=== PATIENT | female | born 1970 | race Caucasian/White ===

== ENCOUNTER 2017-06-24 08:28 | Emergency (ER) | payer SELFPAY ==
[~2017-06-24] VITALS: Ht 154.9 cm; Wt 67.1 kg
[2017-06-24 08:40] VITALS: BP 110/59
--- NOTE | 2017-06-24 08:50 | NUR ---
PT AMBULATED TO BED 11. Addendum: 06/24/17 at 0852 by [facility] PT AMBULATED TO BED 12.
--- NOTE | 2017-06-24 08:52 | NUR ---
47F BIB SELF C/O BODY ACHES, PRESSURE, NON-RADIATING, 8/10 X YESTERDAY; PT C/O HEADACHE AND PRODUCTIVE COUGH WITH WHITE PHLEGM X YESTERDAY; BL LUNG SOUNDS CLEAR, RR EVEN/UNLABORED, EQUAL RISE/FALL OF CHEST NOTED AT THIS TIME; PT STATES NO TRAUMA OR INJURY TO HEAD AT THIS TIME; PT AA&OX4, PERRLA, STATES NO BLURRY VISION OR VISION CHANGES AT THIS TIME; PT C/O NAUSEA, BUT STATES NO VOMITING OR DIARRHEA AT THIS TIME; ABDOMEN SOFT, NON-TENDER, ACTIVE BOWEL SOUNDS X 4 QUADRANTS; STEADY GAIT; PT RESTING IN BED WITH HOB ELEVATED AND IN LOWEST POSITION; POSITIONED FOR COMFORT; ER MD MADE AWARE OF STATUS. WILL CONTINUE TO MONITOR.
[2017-06-24] MEDS ORDERED: NACL 0.9% 1,000 ML IV ONE (10:10)
[2017-06-24] MEDS ORDERED: KETOROLAC 30 MG/ML VIAL IVP ONE (10:10)
[2017-06-24] MEDS ORDERED: ONDANSETRON 4 MG/2 ML VIAL IVP ONE (10:30)
--- NOTE | 2017-06-24 10:30 | NUR ---
PT APPEARS TO RESTING COMFORTABLY IN BED; RR EVEN/UNLABORED; POSITIONED FOR COMFORT; WILL CONTINUE TO MONITOR.
[2017-06-24 10:41] LABS: ANION GAP 15.9 (8-16); CARBON DIOXIDE 26.6 mmol/L (21-32); CREATININE 0.9 mg/dL (0.6-1.3); POTASSIUM 3.5 mmol/L (3.5-5.1)
[2017-06-24 10:46] LABS: ALBUMIN 4.5 g/dL (3.4-5.0); TOTAL BILIRUBIN 0.5 mg/dL (0.0-1.0)
[2017-06-24 10:48] LABS: BASOPHILS # (AUTO) 0.1 K/uL (0.00-0.22); BASOPHILS % (AUTO) 0.8 % (0.0-2.0); EOSINOPHILS % (AUTO) 0.6 % (0.0-4.0); HEMATOCRIT 41.2 % (36-48); HEMOGLOBIN 13.6 g/dL (12.0-16.0); LYMPHOCYTES # (AUTO) 0.6 K/uL (2.5-16.5); LYMPHOCYTES % (AUTO) 7.9 % (20.5-51.1); MEAN CORPUSCULAR HEMOGLOBIN 28 pg (27-31); MEAN CORPUSCULAR HGB CONC 33 g/dL (33-37); MEAN CORPUSCULAR VOLUME 85 fL (80-94); MONOCYTES # (AUTO) 0.9 K/uL (0.8-1.0); MONOCYTES % (AUTO) 12.8 % (1.7-9.3); NEUTROPHILS # (AUTO) 5.4 K/uL (1.8-7.7); NEUTROPHILS % (AUTO) 77.9 % (42.2-75.2); PLATELET COUNT (AUTO) 293 K/uL (140-450); RED BLOOD CELL COUNT(AUTO) 4.86 MIL/uL (4.20-5.40); RED CELL DISTRIBUTION WIDTH 12.5 % (11.6-13.7)
--- NOTE | 2017-06-24 11:08 | NUR ---
PT STATES NOT READY TO GIVE URINE AT THIS TIME; URINE CUP PROVIDED; WILL CONTINUE TO MONITOR.
--- NOTE | 2017-06-24 12:44 | NUR ---
PT APPEARS TO BE RESTING COMFORTABLY IN BED; RR EVEN/UNLABORED; POSITIONED FOR COMFORT; WILL CONTINUE TO MONITOR.
--- NOTE | 2017-06-24 13:00 | NUR ---
PATIENT RESTING COMFORTABLY. STATES ONLY HAS HEAD ACHE AND FEELING MUCH BETTER. CONINTUE TO MONITOR.
[2017-06-24 13:11] LABS: APPEARANCE,URINE HAZY (CLEAR); BILIRUBIN,URINE NEGATIVE (NEGATIVE); BLOOD, URINE NEGATIVE (NEGATIVE); LEUKOCYTE ESTERASE ,URINE NEGATIVE (NEGATIVE); NITRITE, URINE NEGATIVE (NEGATIVE); PH,URINE 7.5 (5.0-9.0); UGLUCOSE NEGATIVE (NEGATIVE)
[2017-06-24 13:13] LABS: COLOR,URINE YELLOW (YELLOW)
[2017-06-24] MEDS ORDERED: ACETAMINOPHEN EXTRA STRENGTH 500 MG TAB PO ONE (14:10)
[2017-06-24 14:46] VITALS: BP 105/58
== END 2017-06-24 14:47 | disposition home or self-care (01) ==
LOC: MED 08:28
DX: B34.9 Viral infection, unspecified (principal)
CPT/HCPCS: 36415; 80053; 81003; 81025; 84702; 85025; 87804; 96361; 96374; 96375; 99284; J1885; J2405; J7030

== ENCOUNTER 2018-10-17 11:09 | Emergency (ER) | payer SELFPAY ==
[~2018-10-17] VITALS: Ht 154.9 cm; Wt 64.4 kg
[2018-10-17 11:25] VITALS: BP 105/64
--- NOTE | 2018-10-17 12:15 | NUR ---
PT TO ER BED 7
--- NOTE | 2018-10-17 12:37 | NUR ---
Dr. Garcia evaluating patient at bedside.
[2018-10-17] MEDS ORDERED: KETOROLAC 60 MG/2 ML VIAL IM ONE (12:50)
[2018-10-17] MEDS ORDERED: DEXAMETHASONE 10 MG/ML VIAL IM ONE (12:50)
--- NOTE | 2018-10-17 13:00 | NUR ---
48 Y FEMALE BIB SELF C/O RIGHT ARM PAIN X 1 MONTH. PT STATES SHE WAS LIFTING BOXES AND HURT HER ARM. RECENTLY THE PAIN HAS WORSENED. PAIN 10/10 SEVERE. -ROM, NO TRUAMA, -DEFORMITY. +CAP REFILL <3 SECONDS, PALPABLE RADIAL PULSE. VSS AT THIS TIME. AA0X4. BED IS DOWN, LOCKED, BED RAILX 1, ERMD NOTIFIED. PMH: TENDINITIS
--- NOTE | 2018-10-17 13:02 | NUR ---
XRAY AT BEDSIDE
[2018-10-17 13:36] VITALS: BP 110/67
== END 2018-10-17 13:36 | disposition home or self-care (01) ==
LOC: MED 11:09
DX: M75.01 Adhesive capsulitis of right shoulder (principal)
CPT/HCPCS: 73030; 96372; 99283; J1100; J1885; Q0092

== ENCOUNTER 2018-11-23 08:59 | Emergency (ER) | payer SELFPAY ==
[~2018-11-23] VITALS: Ht 154.9 cm; Wt 63.5 kg
[2018-11-23 09:10] VITALS: BP 134/86
--- NOTE | 2018-11-23 10:00 | NUR ---
Pt presents to ER with c/o N/V/D x 1 day and right arm pain from injury 4 years ago. pt last ate last night and vomited. vomiting started yesterday morning. stools are loose. abdominal pain 02/02 hx: vertigo
[2018-11-23] MEDS ORDERED: NACL 0.9% 1,000 ML IV ONE (10:25)
[2018-11-23] MEDS ORDERED: MORPHINE SULFATE 2 MG/ML SYR IVP ONE (10:25)
[2018-11-23] MEDS ORDERED: DIPHENOXYLATE /ATROPINE 2.5 MG TAB PO ONE (10:25)
[2018-11-23] MEDS ORDERED: KETOROLAC 30 MG/ML VIAL IVP ONE (10:25)
[2018-11-23] MEDS ORDERED: ONDANSETRON 4 MG/2 ML VIAL IVP ONE (10:25)
[2018-11-23] MEDS ORDERED: NACL 0.9% 1,000 ML IV SCH (10:25)
[2018-11-23] MEDS ORDERED: PROMETHAZINE 25 MG/ML VIAL IM ONE (10:25)
[2018-11-23 11:21] LABS: BASOPHILS % (AUTO) 0.3 % (0.0-2.0); EOSINOPHILS # (AUTO) 0.2 K/uL (0-0.4); EOSINOPHILS % (AUTO) 1.9 % (0.0-4.0); HEMATOCRIT 39.6 % (36-48); LYMPHOCYTES % (AUTO) 21.2 % (20.5-51.1); MEAN CORPUSCULAR HEMOGLOBIN 27 pg (27-31); MEAN CORPUSCULAR HGB CONC 33 g/dL (33-37); MEAN CORPUSCULAR VOLUME 81.5 fL (80-94); MONOCYTES # (AUTO) 0.8 K/uL (0.8-1.0); MONOCYTES % (AUTO) 8.5 % (1.7-9.3); NEUTROPHILS # (AUTO) 6.4 K/uL (1.8-7.7); NEUTROPHILS % (AUTO) 68.1 % (42.2-75.2); PLATELET COUNT (AUTO) 326 K/uL (140-450); RED BLOOD CELL COUNT(AUTO) 4.85 MIL/uL (4.20-5.40); RED CELL DISTRIBUTION WIDTH 13.7 % (11.6-13.7); WHITE BLOOD COUNT (AUTO) 9.5 K/uL (4.8-10.8)
[2018-11-23 11:30] LABS: ANION GAP 12.6 (8-16); CARBON DIOXIDE 27.4 mmol/L (21-32); CHLORIDE 104 mmol/L (98-107); CREATININE 0.6 mg/dL (0.6-1.3); GFR ARICAN-AMERICAN 137 mL/min (>90); GLUCOSE 97 mg/dL (74-106); SODIUM SERUM 140 mmol/L (136-145); UREA NITROGEN, BLOOD 13 mg/dL (7-18)
[2018-11-23 11:35] LABS: ACETONE, SERUM NEGATIVE (NEGATIVE)
[2018-11-23 11:36] LABS: ALBUMIN 3.9 g/dL (3.4-5.0); AMYLASE 86 U/L (25-115); ASPARTATE AMINOTRANSFERASE 28 U/L (15-37); LIPASE 166 U/L (73-393); TOTAL BILIRUBIN 0.7 mg/dL (0.0-1.0)
--- NOTE | 2018-11-23 11:40 | NUR ---
PT TO CT VIA [facility]
--- NOTE | 2018-11-23 11:40 | NUR ---
Patient taken to CT scan via gurney by [employer]
[2018-11-23 11:42] LABS: BARBITURATE, URINE NEG. ng/ml (NEG <=200); BENZODIAZEPINE, URINE NEG. ng/mL (NEG <=200); CANNABINOID, URINE NEG. ng/mL (NEG <=50); COCAINE, URINE NEG. ng/mL (NEG <=300); OPIATE, URINE NEG. ng/mL (NEG <=2000); PHENCYCLIDINE SCREEN,URINE NEG. ng/mL (NEG <=25)
--- NOTE | 2018-11-23 11:51 | NUR ---
Patient returned from CT scan. RN re-evaluating patient at bedside.
[2018-11-23 11:53] LABS: APPEARANCE,URINE CLEAR (CLEAR); BILIRUBIN,URINE NEGATIVE (NEGATIVE); BLOOD, URINE NEGATIVE (NEGATIVE); COLOR,URINE YELLOW (YELLOW); LEUKOCYTE ESTERASE ,URINE NEGATIVE (NEGATIVE); NITRITE, URINE NEGATIVE (NEGATIVE); UGLUCOSE NEGATIVE (NEGATIVE)
--- NOTE | 2018-11-23 15:01 | NUR ---
Patient appears to be resting comfortably in bed. Vital Signs within normal limits. Respirations even and unlabored.
--- NOTE | 2018-11-23 15:12 | NUR ---
Patient discharged with v/s stable. Written and verbal after care instructions given and explained. Patient alert, oriented and verbalized understanding of instructions. Ambulatory with steady gait. All questions addressed prior to discharge. ID band removed. Patient advised to follow up with PMD. Rx of IMMODIUM, COMPAZINE given. Patient educated on indication of medication including possible reaction and side effects. Opportunity to ask questions provided and answered.
[2018-11-23 15:13] VITALS: BP 112/65
== END 2018-11-23 15:12 | disposition home or self-care (01) ==
LOC: MED 08:59
DX: A08.4 Viral intestinal infection, unspecified (principal)
CPT/HCPCS: 36415; 74176; 80053; 80305; 81003; 81025; 82009; 82150; 83605; 83690; 85025; 96361; 96374; 96375; 99284; G0482; J1885; J2270; J2405; J2550; J7030

== ENCOUNTER 2018-11-30 19:34 | Emergency (ER) | payer SELFPAY ==
[~2018-11-30] VITALS: Ht 154.9 cm; Wt 67.6 kg
[2018-11-30 19:35] VITALS: BP 137/82
--- NOTE | 2018-11-30 19:35 | NUR ---
TO BED # 12 AMBULATORY
--- NOTE | 2018-11-30 19:50 | NUR ---
PT BIB SELF C/O ABD PAIN. PT STATES SUDDEN RIGHT FLANK PAIN, LLQ ABD PAIN RADIATES TO LEFT SIDE OF BACK, +TENDERNESS; +NAUSEA; DENIES TRAUMA OR INJURY. PT STATES 7/10 CONSTANT CRAMPING ABD PAIN. BOWEL SOUNDS ACTIVE THROUGH OUT. PT ACTING APPROPRIATLY, SPEAKING IN CLEAR AND COMPLETE SENTENCES. PT IN GOWN, IN BED; BED IN LOWER LOCKED POSITION, BEDRAIL UP X1. PENDING ERMD EVAL.
[2018-11-30] MEDS ORDERED: NACL 0.9% 1,000 ML IV SCH (20:20)
[2018-11-30] MEDS ORDERED: MORPHINE SULFATE 4 MG/ML SYR IVP ONE (20:20)
[2018-11-30] MEDS ORDERED: ONDANSETRON 4 MG/2 ML VIAL IVP ONE (20:20)
--- NOTE | 2018-11-30 20:40 | NUR ---
LAB AT BEDSIDE.
[2018-11-30 20:50] LABS: BASOPHILS # (AUTO) 0.1 K/uL (0.00-0.22); EOSINOPHILS # (AUTO) 0.3 K/uL (0-0.4); EOSINOPHILS % (AUTO) 2.9 % (0.0-4.0); HEMATOCRIT 36.8 % (36-48); LYMPHOCYTES # (AUTO) 3.8 K/uL (2.5-16.5); LYMPHOCYTES % (AUTO) 42.8 % (20.5-51.1); MEAN CORPUSCULAR HEMOGLOBIN 27 pg (27-31); MEAN CORPUSCULAR HGB CONC 33 g/dL (33-37); MEAN CORPUSCULAR VOLUME 80.8 fL (80-94); MONOCYTES % (AUTO) 11.7 % (1.7-9.3); NEUTROPHILS # (AUTO) 3.6 K/uL (1.8-7.7); NEUTROPHILS % (AUTO) 41.6 % (42.2-75.2); PLATELET COUNT (AUTO) 348 K/uL (140-450); RED BLOOD CELL COUNT(AUTO) 4.55 MIL/uL (4.20-5.40); RED CELL DISTRIBUTION WIDTH 13.3 % (11.6-13.7); WHITE BLOOD COUNT (AUTO) 8.8 K/uL (4.8-10.8)
--- NOTE | 2018-11-30 20:56 | NUR ---
PT GONE TO CT
[2018-11-30 20:58] LABS: APPEARANCE,URINE CLEAR (CLEAR); BILIRUBIN,URINE NEGATIVE (NEGATIVE); BLOOD, URINE NEGATIVE (NEGATIVE); COLOR,URINE YELLOW (YELLOW); LEUKOCYTE ESTERASE ,URINE TRACE (NEGATIVE); NITRITE, URINE NEGATIVE (NEGATIVE); UGLUCOSE NEGATIVE (NEGATIVE)
--- NOTE | 2018-11-30 20:58 | NUR ---
PT TO CT VIA [facility] BY [employer].
[2018-11-30 21:10] LABS: ALBUMIN 3.8 g/dL (3.4-5.0); ANION GAP 13.6 (8-16); CREATININE 0.6 mg/dL (0.6-1.3); POTASSIUM 3.6 mmol/L (3.5-5.1); TOTAL BILIRUBIN 0.3 mg/dL (0.0-1.0)
[2018-11-30 21:22] LABS: RBC,URINE 0-5 /HPF (0-5); WBC,URINE 0-5 /HPF (0-5)
--- NOTE | 2018-11-30 21:30 | NUR ---
PATIENT STATES NO NEEDS. SITTING UP IN BED.
[2018-11-30 23:03] VITALS: BP 115/77
--- NOTE | 2018-11-30 23:04 | NUR ---
Patient discharged with v/s stable. Written and verbal after care instructions given and explained. Patient alert, oriented and verbalized understanding of instructions. Ambulatory with steady gait. All questions addressed prior to discharge. ID band removed. Patient advised to follow up with PMD. Rx of NORCO, MIRALAX given. Patient educated on indication of medication including possible reaction and side effects. Opportunity to ask questions provided and answered.
== END 2018-11-30 23:03 | disposition home or self-care (01) ==
LOC: MED 19:34
DX: R10.31 Right lower quadrant pain (principal)
CPT/HCPCS: 36415; 74177; 80053; 81001; 81025; 83690; 84703; 85025; 96374; 96375; 99284; J2270; J2405; Q9967; J7030

== ENCOUNTER 2019-12-22 09:39 | Emergency (ER) | payer MEDICAID ==
[~2019-12-22] VITALS: Ht 157.5 cm; Wt 57.7 kg
[2019-12-22 09:43] VITALS: BP 120/72
--- NOTE | 2019-12-22 10:00 | NUR ---
PT AMBULATED TO ER BED 12
--- NOTE | 2019-12-22 10:06 | NUR ---
C/O FINGER PAIN, SWELLING X 2 MONTHS. 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 MED HX: VERTIGO
--- NOTE | 2019-12-22 10:07 | NUR ---
DR MCKEON AT BEDSIDE EVALUATING PT.
[2019-12-22 10:17] VITALS: BP 120/72
--- NOTE | 2019-12-22 10:17 | NUR ---
Patient discharged with v/s stable. Written and verbal after care instructions given and explained regarding musculoskeletal pain. Patient alert, oriented and verbalized understanding of instructions. Ambulatory with steady gait. All questions addressed prior to discharge. ID band removed. Patient advised to follow up with PMD. Rx of motrin given. Patient educated on indication of medication including possible reaction and side effects. Opportunity to ask questions provided and answered.
== END 2019-12-22 10:17 | disposition home or self-care (01) ==
LOC: MED 09:39
DX: M79.641 Pain in right hand (principal); M79.642 Pain in left hand; Z98.890 Other specified postprocedural states
CPT/HCPCS: 99282

== ENCOUNTER 2020-01-16 10:02 | Emergency (ER) | payer MEDICAID ==
[~2020-01-16] VITALS: Ht 154.9 cm; Wt 57.6 kg
[2020-01-16 10:16] VITALS: BP 119/64
[2020-01-16] MEDS ORDERED: ACETAMINOPHEN EXTRA STRENGTH 500 MG TAB PO ONE (12:05)
[2020-01-16] MEDS ORDERED: IBUPROFEN 600 MG TAB PO ONE (12:05)
[2020-01-16 12:31] VITALS: BP 120/62
== END 2020-01-16 12:31 | disposition home or self-care (01) ==
LOC: MED 10:02
DX: M54.2 Cervicalgia (principal); M54.5 Low back pain
CPT/HCPCS: 20552; 20553; 99284

== ENCOUNTER 2020-01-23 16:55 | Emergency (ER) | payer MEDICAID ==
[~2020-01-23] VITALS: Ht 154.9 cm; Wt 57.2 kg
[2020-01-23 16:59] VITALS: BP 136/76
--- NOTE | 2020-01-23 17:01 | NUR ---
Pt taken to bed 12.
--- NOTE | 2020-01-23 17:07 | NUR ---
49 Y/O FEMALE C/O MUSCULOSKELETAL CHEST PAIN S/P HITTING RIGHT SIDE OF CHEST ON CORNER OF FURNITURE. PT STATES SHE FEELS A SHARP PAIN WHEN TAKING A DEEP BREATH OR GETTING OUT OF BED. PT STATES SHE TOOK 600MG IBUPROFEN AT 1100 THIS MORNING, BUT PAIN IS STILL THERE. DENIES ANY COUGH/SOB/CHILLS/FEVER. DENIES ANY N/V/D. SKIN INTACT. NO BRUISING OR SWELLING NOTED. AAOX4. NO PMH NKA
--- NOTE | 2020-01-23 17:20 | NUR ---
X-Ray at bedside.
[2020-01-23] MEDS: NAPROXEN 500 MG TAB PO SCH (17:34)
[2020-01-23 18:30] VITALS: BP 131/76
--- NOTE | 2020-01-23 18:30 | NUR ---
Patient discharged with v/s stable. Written and verbal after care instructions given and explained. Patient alert, oriented and verbalized understanding of instructions. Ambulatory with steady gait. All questions addressed prior to discharge. ID band removed. Patient advised to follow up with PMD. Rx of Naprosyn 500mg given. Patient educated on indication of medication including possible reaction and side effects. Opportunity to ask questions provided and answered.
== END 2020-01-23 18:30 | disposition home or self-care (01) ==
LOC: MED 16:55
DX: R07.89 Other chest pain (principal)
CPT/HCPCS: 71045; 99283

== ENCOUNTER 2020-01-25 08:30 | Emergency (ER) | payer MEDICAID ==
[~2020-01-25] VITALS: Ht 157.5 cm; Wt 57.6 kg
[2020-01-25 08:43] VITALS: BP 135/77
--- NOTE | 2020-01-25 08:52 | NUR ---
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
--- NOTE | 2020-01-25 08:53 | NUR ---
Patient ambulated to bed 7.
--- NOTE | 2020-01-25 08:55 | NUR ---
Patient being evaluated by Dr. Moura at bedside.
[2020-01-25] MEDS ORDERED: ACETAMINOPHEN 650 MG/20.3 ML UDC PO STA (08:59)
[2020-01-25] MEDS ORDERED: methocarbamoL 500 MG TAB PO SCH (09:00)
--- NOTE | 2020-01-25 09:03 | NUR ---
collection systems technician at bedside.
[2020-01-25 10:01] VITALS: BP 128/75
--- NOTE | 2020-01-25 10:01 | NUR ---
Patient discharged with v/s stable. Written and verbal after care instructions given and explained. Patient alert, oriented and verbalized understanding of instructions. Ambulatory with steady gait. All questions addressed prior to discharge. ID band removed. Patient advised to follow up with PMD. Rx of Robaxin given. Patient educated on indication of medication including possible reaction and side effects. Opportunity to ask questions provided and answered.
== END 2020-01-25 10:01 | disposition home or self-care (01) ==
LOC: MED 08:30
DX: S29.012A Strain of muscle and tendon of back wall of thorax, initial encounter (principal); X58.XXXA Exposure to other specified factors, initial encounter; Y93.89 Activity, other specified; Y92.89 Other specified places as the place of occurrence of the external cause; Y99.8 Other external cause status
CPT/HCPCS: 72072; 99283

== ENCOUNTER 2020-05-23 07:38 | Emergency (ER) | payer MEDICAID ==
[~2020-05-23] VITALS: Ht 154.9 cm; Wt 56.7 kg
[2020-05-23 07:42] VITALS: BP 119/65
--- NOTE | 2020-05-23 07:46 | NUR ---
RECEIVED PATIENT IN BED 1 WITH C/O RLQ PAIN X 1 WEEK. RESPIRATIONS ARE REGULAR AND UNLABORED. PAIN RATED 8/10 AND INCREASES WHEN EATING. PT STATES LAST BM WAS THIS AM AND WAS NORMAL. DENIES URINARY COMPLAINTS AND IS POST MENAPAUSAL. MADE COMFORTABLE, SIDE RAILS UP. Addendum: 05/23/20 at 0815 by SANTIAGO ABDOMEN IS SOFT, FACIAL GRIMAING IS NOTED UPON PALPATION OF RLQ.
--- NOTE | 2020-05-23 07:48 | NUR ---
Patient ambulated to Bed 1.
[2020-05-23] MEDS ORDERED: ONDANSETRON 4 MG/2 ML VIAL IVP ONE (08:40)
[2020-05-23] MEDS ORDERED: MORPHINE SULFATE 4 MG/ML SYR IVP ONE (08:40)
[2020-05-23 09:00] LABS: BASOPHILS % (AUTO) 0.6 % (0.0-2.0); EOSINOPHILS # (AUTO) 0.1 K/uL (0-0.4); EOSINOPHILS % (AUTO) 1.7 % (0.0-4.0); HEMATOCRIT 36.4 % (36-48); HEMOGLOBIN 11.9 g/dL (12.0-16.0); LYMPHOCYTES # (AUTO) 2.6 K/uL (2.5-16.5); LYMPHOCYTES % (AUTO) 33.6 % (20.5-51.1); MEAN CORPUSCULAR HEMOGLOBIN 27 pg (27-31); MEAN CORPUSCULAR HGB CONC 33 g/dL (33-37); MONOCYTES # (AUTO) 0.7 K/uL (0.8-1.0); MONOCYTES % (AUTO) 8.8 % (1.7-9.3); NEUTROPHILS # (AUTO) 4.3 K/uL (1.8-7.7); NEUTROPHILS % (AUTO) 55.3 % (42.2-75.2); PLATELET COUNT (AUTO) 340 K/uL (140-450); RED BLOOD CELL COUNT(AUTO) 4.49 MIL/uL (4.20-5.40); RED CELL DISTRIBUTION WIDTH 13.4 % (11.6-13.7); WHITE BLOOD COUNT (AUTO) 7.7 K/uL (4.8-10.8)
--- NOTE | 2020-05-23 09:04 | NUR ---
RESTING MORE COMFORTABLY. PAIN 9/10. US AT BEDSIDE
[2020-05-23 09:24] LABS: ANION GAP 11.7 (8-16); CARBON DIOXIDE 27.3 mmol/L (21-32); CREATININE 0.6 mg/dL (0.6-1.3)
[2020-05-23 09:26] LABS: APPEARANCE,URINE CLEAR (CLEAR); BILIRUBIN,URINE NEGATIVE (NEGATIVE); BLOOD, URINE NEGATIVE (NEGATIVE); COLOR,URINE YELLOW (YELLOW); LEUKOCYTE ESTERASE ,URINE NEGATIVE (NEGATIVE); NITRITE, URINE NEGATIVE (NEGATIVE); UGLUCOSE NEGATIVE (NEGATIVE)
[2020-05-23 09:31] LABS: ALBUMIN 3.7 g/dL (3.4-5.0); TOTAL BILIRUBIN 0.4 mg/dL (0.0-1.0)
[2020-05-23] MEDS ORDERED: KETOROLAC 30 MG/ML VIAL IVP ONE (10:25)
[2020-05-23 11:02] VITALS: BP 119/77
--- NOTE | 2020-05-23 11:04 | NUR ---
READY FOR DISCHARGE.
--- NOTE | 2020-05-23 11:04 | NUR ---
Patient discharged with v/s stable. Written and verbal after care instructions given and explained. Patient alert, oriented and verbalized understanding of instructions. Ambulatory with steady gait. All questions addressed prior to discharge. ID band removed. Patient advised to follow up with PMD. Rx of MYLANTA AND TYLENOL given. Patient educated on indication of medication including possible reaction and side effects. Opportunity to ask questions provided and answered.
== END 2020-05-23 11:04 | disposition home or self-care (01) ==
LOC: MED 07:38
DX: K80.50 Calculus of bile duct without cholangitis or cholecystitis without obstruction (principal); Z98.890 Other specified postprocedural states
CPT/HCPCS: 36415; 76705; 80053; 81003; 83690; 85025; 96374; 96375; 99284; J1885; J2270; J2405

== ENCOUNTER 2020-09-02 15:46 | Emergency (ER) | payer MEDICAID ==
[~2020-09-02] VITALS: Ht 154.9 cm; Wt 58.1 kg
[2020-09-02 15:54] VITALS: BP 133/80
--- NOTE | 2020-09-02 16:06 | NUR ---
50 Y/O FEMALE C/O LEFT ARM NUMBNESS AND TINGLING INTERMITTENTLY SINCE 1100 THIS MORNING. PT REPORTS SHE WAS EXPERIENCING SHARP/STABBING LIKE SENSTION TO LEFT CHEST WITH CHEST PRESSURE WHICH HAS SINCE RESOLVED BUT NOW HAVING LEFT ARM NUMBNESS. 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
[2020-09-02 16:31] LABS: BASOPHILS # (AUTO) 0.1 K/uL (0.00-0.22); BASOPHILS % (AUTO) 0.7 % (0.0-2.0); EOSINOPHILS # (AUTO) 0.1 K/uL (0-0.4); EOSINOPHILS % (AUTO) 1.4 % (0.0-4.0); HEMATOCRIT 36.3 % (36-48); HEMOGLOBIN 11.9 g/dL (12.0-16.0); LYMPHOCYTES % (AUTO) 34.5 % (20.5-51.1); MEAN CORPUSCULAR HEMOGLOBIN 26 pg (27-31); MEAN CORPUSCULAR HGB CONC 33 g/dL (33-37); MEAN CORPUSCULAR VOLUME 80.5 fL (80-94); MONOCYTES # (AUTO) 0.6 K/uL (0.8-1.0); MONOCYTES % (AUTO) 7.4 % (1.7-9.3); NEUTROPHILS # (AUTO) 4.9 K/uL (1.8-7.7); PLATELET COUNT (AUTO) 359 K/uL (140-450); RED BLOOD CELL COUNT(AUTO) 4.51 MIL/uL (4.20-5.40); RED CELL DISTRIBUTION WIDTH 13.4 % (11.6-13.7); WHITE BLOOD COUNT (AUTO) 8.7 K/uL (4.8-10.8)
[2020-09-02 16:47] LABS: ANION GAP 10.7 (8-16); CARBON DIOXIDE 29.2 mmol/L (21-32); CREATININE 0.6 mg/dL (0.6-1.3); POTASSIUM 3.9 mmol/L (3.5-5.1)
--- NOTE | 2020-09-02 18:51 | NUR ---
LAB AT BEDSIDE DRAWING REPEAT TROPONIN
--- NOTE | 2020-09-02 19:13 | NUR ---
REPORT RECEIVED FROM ANI MULLIGAN FOR CONTINUITY OF CARE
--- NOTE | 2020-09-02 19:50 | NUR ---
DR. BUCIO AT BEDSIDE SPEAKING WITH PT
[2020-09-02 20:15] VITALS: BP 128/79
--- NOTE | 2020-09-02 20:17 | NUR ---
Patient discharged with v/s stable. Written and verbal after care instructions given and explained. Patient verbalized understanding. Ambulatory with steady gait. All questions addressed prior to discharge. Advised to follow up with PMD.
== END 2020-09-02 20:17 | disposition home or self-care (01) ==
LOC: MED 15:46
DX: R07.9 Chest pain, unspecified (principal); R20.2 Paresthesia of skin; I10 Essential (primary) hypertension
CPT/HCPCS: 36415; 70450; 71045; 80048; 84484; 85025; 93005; 99285

== ENCOUNTER 2020-10-13 14:57 | Emergency (ER) | payer MEDICAID ==
[~2020-10-13] VITALS: Ht 154.9 cm; Wt 58.2 kg
[2020-10-13 15:03] VITALS: BP 120/67
--- NOTE | 2020-10-13 15:07 | NUR ---
ANATOLIY. HANDED ON URINE CUP.
--- NOTE | 2020-10-13 16:12 | NUR ---
PATIENT AMBULATED TO BED 8.
--- NOTE | 2020-10-13 16:17 | NUR ---
50 Y/O FEMALE C/O LOWER BACK PAIN 03/05 DESCRIBES ACHING NON-RADIATING X1DAY. PT STATES SHE WAS LIFTING HEAVY ITEMS [id number] AGO AND STEPPED BACK INCORRECTLY AND FELT A PULL. TODAY SYMPTOMS WORSENED X1DAY WORSE WHEN SITTING FOR TOO LONG. DENIES N/V, DENIES FEVER/CHILLS. DENIES PMH NKA
--- NOTE | 2020-10-13 16:36 | NUR ---
KEITH Gruberto at pt bedside for further evaluation.
[2020-10-13] MEDS ORDERED: IBUPROFEN 600 MG TAB PO ONE (16:40)
[2020-10-13] MEDS ORDERED: LID5T TP (17:26)
[2020-10-13] MEDS ORDERED: METH-1681 PO (17:26)
[2020-10-13] MEDS ORDERED: PRED20TA5 PO (17:26)
[2020-10-13] MEDS ORDERED: CEPH500C16 PO (17:27)
[2020-10-13 17:43] VITALS: BP 120/67
--- NOTE | 2020-10-13 17:43 | NUR ---
Patient discharged with v/s stable. Written and verbal after care instructions given and explained. Patient alert, oriented and verbalized understanding of instructions. Ambulatory with steady gait. All questions addressed prior to discharge. ID band removed. Patient advised to follow up with PMD. Rx of keflex 500mg bid po x7days, prednisone 20mg once x5days, lidocaine patch daily x7days, and robaxin 500mg po bid x7days given. Patient educated on indication of medication including possible reaction and side effects. Opportunity to ask questions provided and answered.
== END 2020-10-13 17:43 | disposition home or self-care (01) ==
LOC: MED 14:57
DX: N39.0 Urinary tract infection, site not specified (principal); M54.5 Low back pain; Z79.899 Other long term (current) drug therapy
CPT/HCPCS: 81002; 87086; 99283

== ENCOUNTER 2020-12-13 19:29 | Emergency (ER) | payer MEDICAID ==
[~2020-12-13] VITALS: Ht 157.5 cm; Wt 56.7 kg
[~2020-12-13 19:29] MED LIST: CEPH500C16 PO; LID5T TP; METH-1681 PO; PRED20TA5 PO
[2020-12-13 19:40] VITALS: BP 110/70
--- NOTE | 2020-12-13 19:40 | NUR ---
TO BED AMBULATORY
--- NOTE | 2020-12-13 19:45 | NUR ---
50 Y/O PATIENT PRESENTS TO ED WITH LEFT BREAST PAIN. PT STATES "I STARTED TO HAVE A LEFT BREAST PAIN THAT STARTED LAST ROBBIE. I FEEL TENDERNESS AND SORENESS, 8/10 AND NON RADIATING. I AM HAVING A HARD TIME LAYING DOWN ON MY SIDE." DENIES N/V/D; SKIN IS PINK/WARM/DRY; AAOX4 WITH EVEN AND STEADY GAIT; LUNGS CLEAR BL; HR EVEN AND REGULAR; PT DENIES ANY FEVER, CP, SOB, OR COUGH AT THIS TIME; VSS; PATIENT POSITIONED FOR COMFORT; HOB ELEVATED; BEDRAILS UP X2; BED DOWN. ER MD MADE AWARE OF PT STATUS. NKA PMH: DENIES MENOPAUSE
[2020-12-13] MEDS ORDERED: KETOROLAC 60 MG/2 ML VIAL IM ONE (20:20)
[2020-12-13] MEDS ORDERED: ACETAMINOPHEN EXTRA STRENGTH 500 MG TAB PO ONE (20:20)
[2020-12-13] MEDS ORDERED: IBUP-2213 PO (21:19)
[2020-12-13 22:15] VITALS: BP 110/70
== END 2020-12-13 22:15 | disposition home or self-care (01) ==
LOC: MED 19:29
DX: R07.89 Other chest pain (principal); Z79.899 Other long term (current) drug therapy
CPT/HCPCS: 71045; 93005; 96372; 99283; J1885

== ENCOUNTER 2021-02-01 18:04 | Emergency (ER) | payer MEDICAID ==
[~2021-02-01] VITALS: Ht 154.9 cm; Wt 60.0 kg
[~2021-02-01 18:04] MED LIST changes: +IBUP-2213 PO
[2021-02-01 18:26] VITALS: BP 127/88
--- NOTE | 2021-02-01 19:00 | NUR ---
No nursing interventions needed.
[2021-02-01] MEDS ORDERED: NAPR-1704 PO (19:10)
[2021-02-01 19:25] VITALS: BP 127/88
--- NOTE | 2021-02-01 19:25 | NUR ---
Patient discharged with v/s stable. Written and verbal after care instructions given and explained. Patient alert, oriented and verbalized understanding of instructions. Ambulatory with steady gait. All questions addressed prior to discharge. ID band removed. Patient advised to follow up with PMD. Rx of naproxen was given. Patient educated on indication of medication including possible reaction and side effects. Opportunity to ask questions provided and answered.
== END 2021-02-01 19:24 | disposition home or self-care (01) ==
LOC: MED 18:04
DX: M65.4 Radial styloid tenosynovitis [de Quervain] (principal); Z79.899 Other long term (current) drug therapy
CPT/HCPCS: 99282; 99283

== ENCOUNTER 2021-02-04 21:39 | Emergency (ER) | payer MEDICAID ==
[~2021-02-04 21:39] MED LIST changes: +NAPR-1704 PO
--- NOTE | 2021-02-04 22:24 | NUR ---
PATIENT CALLED TO BE TRIAGE, NO RESPONSE PATIENT LEFT WITHOUT BEING SEEN BY DR. BUCIO . NO FURTHER CARE PROVIDED FOR PATIENT.
--- NOTE | 2021-02-04 22:30 | NUR ---
CALLED FOR THE SECOND TIME , NO RESPONSE
--- NOTE | 2021-02-04 22:40 | NUR ---
CALLED FOR THE THIRD TIME NO RESPONSE
== END 2021-02-04 22:24 | disposition left against medical advice (07) ==
LOC: MED 21:39
DX: M54.9 Dorsalgia, unspecified (principal); Z53.21 Procedure and treatment not carried out due to patient leaving prior to being seen by health care provider

== ENCOUNTER 2021-02-17 18:20 | Emergency (ER) | payer MEDICAID ==
[~2021-02-17] VITALS: Ht 154.9 cm; Wt 63.5 kg
[2021-02-17 18:30] VITALS: BP 132/97
--- NOTE | 2021-02-17 19:12 | NUR ---
PT TAKEN TO RAD VIA W/C
--- NOTE | 2021-02-17 19:55 | NUR ---
PT REFUSED PAIN MEDICATION.NO NURSING CARE PROVIDED.
[2021-02-17] MEDS ORDERED: KETOROLAC 30 MG/ML VIAL ONE (19:56)
[2021-02-17] MEDS ORDERED: NAPR-54 PO (19:59)
[2021-02-17] MEDS: KETOROLAC 30 MG/ML VIAL IM ONE (19:59)
--- NOTE | 2021-02-17 20:11 | NUR ---
Emily hidalgo in [facility] - 02/17/21 at 2011 by ALVARO PT TAKEN TO CHAIR
== END 2021-02-17 20:09 | disposition home or self-care (01) ==
LOC: MED 18:20
DX: M77.8 Other enthesopathies, not elsewhere classified (principal); M79.644 Pain in right finger(s); Z79.899 Other long term (current) drug therapy
CPT/HCPCS: 73130; 99283; J1885

== ENCOUNTER 2021-05-07 10:19 | Emergency (ER) | payer MEDICAID ==
[~2021-05-07] VITALS: Ht 154.9 cm; Wt 61.2 kg
[~2021-05-07 10:19] MED LIST changes: +NAPR-54 PO
[2021-05-07 10:25] VITALS: BP 135/85
--- NOTE | 2021-05-07 10:34 | NUR ---
PT AMBULATED TO BED, STEADY GAIT
--- NOTE | 2021-05-07 10:43 | NUR ---
PT IS A/OX4, BIB SELF, AMBULATED TO BED. PT IS COMPLAINING OF DIZZYNESS AND "PRESSURE" TO THE TOP OF HER HEAD. COMPLAINT STARTED TODAY UPON WAKING APPROXIMATELY 0800. PT IS NAUSEOUS AND VOMITED X 1 THIS MORNING (-)BLOOD IN VOMIT. PT DENIES BLURRED VISION, FEVER, OR MUSCLE ACHES. PT IS RESTING COMFORTABLY SEMI FOWLERS IN BED, RAILS UP X 1, BED IN LOWEST SETTING. HX: VERTIGO NKDA MED: STATES SHE TAKES A OTC FOR DIZZINESS BUT CANNOT REMEMBER THE NAME.
[2021-05-07] MEDS ORDERED: diazePAM 5 MG TAB PO ONE (11:10)
[2021-05-07] MEDS ORDERED: NACL 0.9% 1,000 ML IV ONE (11:10)
[2021-05-07] MEDS ORDERED: ACETAMINOPHEN EXTRA STRENGTH 500 MG TAB PO ONE (11:10)
--- NOTE | 2021-05-07 11:20 | NUR ---
PT TAKEN TO CT SCAN VIA [facility]
--- NOTE | 2021-05-07 11:30 | NUR ---
PT RETURNED FROM CT SCAN
[2021-05-07] MEDS ORDERED: CRUSHER, PILL MC ONE (11:35)
--- NOTE | 2021-05-07 11:36 | NUR ---
LAB AT BEDSIDE
[2021-05-07 11:49] LABS: BASOPHILS # (AUTO) 0.1 K/uL (0.00-0.22); BASOPHILS % (AUTO) 0.9 % (0.0-2.0); EOSINOPHILS # (AUTO) 0.1 K/uL (0-0.4); EOSINOPHILS % (AUTO) 1.5 % (0.0-4.0); HEMATOCRIT 37.1 % (36-48); HEMOGLOBIN 12.1 g/dL (12.0-16.0); LYMPHOCYTES # (AUTO) 2.1 K/uL (2.5-16.5); MEAN CORPUSCULAR HEMOGLOBIN 27 pg (27-31); MEAN CORPUSCULAR HGB CONC 33 g/dL (33-37); MEAN CORPUSCULAR VOLUME 81.3 fL (80-94); MONOCYTES # (AUTO) 0.6 K/uL (0.8-1.0); MONOCYTES % (AUTO) 6.8 % (1.7-9.3); NEUTROPHILS # (AUTO) 5.5 K/uL (1.8-7.7); NEUTROPHILS % (AUTO) 65.8 % (42.2-75.2); PLATELET COUNT (AUTO) 355 K/uL (140-450); RED BLOOD CELL COUNT(AUTO) 4.56 MIL/uL (4.20-5.40); RED CELL DISTRIBUTION WIDTH 13.3 % (11.6-13.7); WHITE BLOOD COUNT (AUTO) 8.4 K/uL (4.8-10.8)
[2021-05-07] MEDS ORDERED: KETOROLAC 15 MG/ML VIAL IVP ONE (12:10)
[2021-05-07] MEDS ORDERED: METOCLOPRAMIDE 10 MG/2 ML INJ VIAL IVP ONE (12:10)
[2021-05-07] MEDS ORDERED: diphenhydrAMINE 50 MG/ML VIAL IVP ONE (12:10)
[2021-05-07 12:44] LABS: ALBUMIN 3.9 g/dL (3.4-5.0); ANION GAP 12.9 (8-16); CARBON DIOXIDE 26.9 mmol/L (21-32); CREATININE 0.7 mg/dL (0.6-1.3); MAGNESIUM 2.2 mg/dL (1.8-2.4); POTASSIUM 3.8 mmol/L (3.5-5.1); TOTAL BILIRUBIN 0.6 mg/dL (0.0-1.0)
[2021-05-07] MEDS ORDERED: ACET-10509 PO (13:21)
[2021-05-07] MEDS ORDERED: MECL-303 PO (13:21)
[2021-05-07] MEDS ORDERED: METO-485 PO (13:21)
[2021-05-07 13:56] VITALS: BP 128/59
--- NOTE | 2021-05-07 13:56 | NUR ---
Patient discharged with v/s stable. Written and verbal after care instructions given and explained. Patient alert, oriented and verbalized understanding of instructions. Ambulatory with steady gait. All questions addressed prior to discharge. ID band removed. Patient advised to follow up with PMD. Rx of TYLENOL, ANTIVERT, REGLAN given. Patient educated on indication of medication including possible reaction and side effects. Opportunity to ask questions provided and answered.
== END 2021-05-07 13:56 | disposition home or self-care (01) ==
LOC: MED 10:19
DX: R51.9 Headache, unspecified (principal); R42 Dizziness and giddiness; R11.0 Nausea
CPT/HCPCS: 36415; 70450; 80053; 81002; 81025; 83735; 84484; 85025; 96361; 96374; 96375; 99285; J1200; J1885; J2765; J7030; 93005

== ENCOUNTER 2021-11-02 17:44 | Emergency (ER) | payer MEDICAID ==
[~2021-11-02] VITALS: Ht 154.9 cm; Wt 66.9 kg
[~2021-11-02 17:44] MED LIST changes: +ACET-10509 PO; +MECL-303 PO; +METO-485 PO
[2021-11-02 17:49] VITALS: BP 130/82
[2021-11-02] MEDS ORDERED: MORPHINE SULFATE 4 MG/ML SYR IVP ONE (19:10)
[2021-11-02] MEDS ORDERED: KETOROLAC 30 MG/ML VIAL IVP ONE (19:10)
--- NOTE | 2021-11-02 19:17 | NUR ---
urine walked to lab and handed to laborer tanbark
--- NOTE | 2021-11-02 19:18 | NUR ---
COMMISSION ASSOCIATE AT BEDSIDE FOR BLOOD DRAW
--- NOTE | 2021-11-02 19:33 | NUR ---
ULTRASOUND AT BEDSIDE
[2021-11-02 19:36] LABS: BASOPHILS # (AUTO) 0.1 K/uL (0.00-0.22); BASOPHILS % (AUTO) 0.7 % (0.0-2.0); EOSINOPHILS # (AUTO) 0.2 K/uL (0-0.4); HEMATOCRIT 36.6 % (36-48); HEMOGLOBIN 12.1 g/dL (12.0-16.0); LYMPHOCYTES # (AUTO) 4.3 K/uL (2.5-16.5); LYMPHOCYTES % (AUTO) 40.9 % (20.5-51.1); MEAN CORPUSCULAR HEMOGLOBIN 27 pg (27-31); MEAN CORPUSCULAR HGB CONC 33 g/dL (33-37); MEAN CORPUSCULAR VOLUME 81.9 fL (80-94); MONOCYTES # (AUTO) 0.8 K/uL (0.8-1.0); MONOCYTES % (AUTO) 7.3 % (1.7-9.3); NEUTROPHILS # (AUTO) 5.1 K/uL (1.8-7.7); NEUTROPHILS % (AUTO) 49.1 % (42.2-75.2); PLATELET COUNT (AUTO) 361 K/uL (140-450); RED BLOOD CELL COUNT(AUTO) 4.47 MIL/uL (4.20-5.40); RED CELL DISTRIBUTION WIDTH 13.4 % (11.6-13.7); WHITE BLOOD COUNT (AUTO) 10.4 K/uL (4.8-10.8)
[2021-11-02 19:48] LABS: APPEARANCE,URINE CLEAR (CLEAR); BILIRUBIN,URINE NEGATIVE (NEGATIVE); BLOOD, URINE NEGATIVE (NEGATIVE); COLOR,URINE YELLOW (YELLOW); LEUKOCYTE ESTERASE ,URINE NEGATIVE (NEGATIVE); NITRITE, URINE NEGATIVE (NEGATIVE); PH,URINE 6.5 (5.0-9.0); UGLUCOSE NEGATIVE (NEGATIVE)
[2021-11-02 19:55] LABS: ALBUMIN 3.8 g/dL (3.4-5.0); ANION GAP 12.3 (8-16); CARBON DIOXIDE 27.4 mmol/L (21-32); CREATININE 0.9 mg/dL (0.6-1.3); POTASSIUM 3.7 mmol/L (3.5-5.1); TOTAL BILIRUBIN 0.3 mg/dL (0.0-1.0)
--- NOTE | 2021-11-02 22:30 | NUR ---
[facility] AT [facility]
--- NOTE | 2021-11-02 22:32 | NUR ---
Patient discharged with v/s stable. Written and verbal after care instructions given and explained. Patient verbalized understanding. Ambulatory with steady gait. All questions addressed prior to discharge. Advised to follow up with PMD. A/OX4, VSS, UNLABORED BREATHING, AMBULATORY, AND CALM DEMEANOR.
[2021-11-02 22:33] VITALS: BP 128/79
== END 2021-11-02 22:34 | disposition home or self-care (01) ==
LOC: MED 17:44
DX: R10.9 Unspecified abdominal pain (principal); R11.0 Nausea; Z98.890 Other specified postprocedural states
CPT/HCPCS: 36415; 76705; 80053; 81003; 83690; 84703; 85025; 96374; 96375; 99284; J1885; J2270; Q0092

== ENCOUNTER 2021-12-31 20:07 | Emergency (ER) | payer BC, MEDICAID ==
[~2021-12-31] VITALS: Ht 157.5 cm; Wt 68.0 kg
[2021-12-31 20:50] VITALS: BP 111/60
[2021-12-31] MEDS ORDERED: METOCLOPRAMIDE 10 MG TAB PO ONE (21:05)
[2021-12-31] MEDS ORDERED: KETOROLAC 30 MG/ML VIAL IM ONE (21:05)
--- NOTE | 2021-12-31 23:24 | NUR ---
PATIENT ELOPED FROM FACILITY. DISCHARGE INSTRUCTIONS NOT GIVEN TO PATIENT. DR. HENDERSON NOTIFIED.
--- NOTE | 2021-12-31 23:24 | NUR ---
ATTEMPTED TO GIVE MEDS PT NOT IN CHAIR C
--- NOTE | 2021-12-31 23:29 | NUR ---
PT ELOPED PER JANITOR CLEANER
== END 2021-12-31 23:24 | disposition left against medical advice (07) ==
LOC: MED 20:07
DX: R51.9 Headache, unspecified (principal); M79.10 Myalgia, unspecified site; R68.83 Chills (without fever)
CPT/HCPCS: 99281

== ENCOUNTER 2022-01-02 18:56 | Emergency (ER) | payer BC ==
[~2022-01-02] VITALS: Ht 157.5 cm; Wt 68.0 kg
[2022-01-02 19:05] VITALS: BP 137/70
[2022-01-02] MEDS ORDERED: KETOROLAC 30 MG/ML VIAL IM ONE (21:20)
[2022-01-02] MEDS ORDERED: ONDANSETRON 4 MG ODT PO ONE (21:20)
[2022-01-02 22:03] LABS: BASOPHILS # (AUTO) 0.1 K/uL (0.00-0.22); BASOPHILS % (AUTO) 1.1 % (0.0-2.0); EOSINOPHILS # (AUTO) 0.1 K/uL (0-0.4); EOSINOPHILS % (AUTO) 0.7 % (0.0-4.0); HEMATOCRIT 35.8 % (36-48); HEMOGLOBIN 11.7 g/dL (12.0-16.0); LYMPHOCYTES # (AUTO) 2.1 K/uL (2.5-16.5); LYMPHOCYTES % (AUTO) 24.9 % (20.5-51.1); MEAN CORPUSCULAR HEMOGLOBIN 27 pg (27-31); MEAN CORPUSCULAR HGB CONC 33 g/dL (33-37); MEAN CORPUSCULAR VOLUME 81.5 fL (80-94); MONOCYTES # (AUTO) 1.2 K/uL (0.8-1.0); MONOCYTES % (AUTO) 14.1 % (1.7-9.3); NEUTROPHILS # (AUTO) 4.9 K/uL (1.8-7.7); NEUTROPHILS % (AUTO) 59.2 % (42.2-75.2); PLATELET COUNT (AUTO) 291 K/uL (140-450); RED BLOOD CELL COUNT(AUTO) 4.39 MIL/uL (4.20-5.40); RED CELL DISTRIBUTION WIDTH 13.8 % (11.6-13.7); WHITE BLOOD COUNT (AUTO) 8.4 K/uL (4.8-10.8)
[2022-01-02 22:08] LABS: ANION GAP 12.9 (8-16); CARBON DIOXIDE 26.3 mmol/L (21-32); CREATININE 0.7 mg/dL (0.6-1.3); POTASSIUM 4.2 mmol/L (3.5-5.1)
[2022-01-02 22:50] VITALS: BP 115/70
== END 2022-01-02 22:50 | disposition home or self-care (01) ==
LOC: MED 18:56
DX: R53.1 Weakness (principal); Z20.822 Contact with and (suspected) exposure to COVID-19
CPT/HCPCS: 36415; 80048; 85025; 87426; 87804; 99283; Q0162; J1885

== ENCOUNTER 2023-04-21 16:56 | Emergency (ER) | payer BC, OTHER ==
[~2023-04-21] VITALS: Ht 157.5 cm; Wt 73.5 kg
[2023-04-21 17:19] VITALS: BP 115/66; PULSE 77; RESP 18; TEMP 96.6; O2SAT 98
[2023-04-21] MEDS ORDERED: KETOROLAC 30 MG/ML VIAL IM ONE (18:20)
[2023-04-21 18:42] LABS: BASOPHILS # (AUTO) 0.1 K/uL (0.00-0.22); BASOPHILS % (AUTO) 0.9 % (0.0-2.0); EOSINOPHILS # (AUTO) 0.3 K/uL (0-0.4); EOSINOPHILS % (AUTO) 2.1 % (0.0-4.0); HEMATOCRIT 36.2 % (36-48); LYMPHOCYTES # (AUTO) 4.4 K/uL (2.5-16.5); MEAN CORPUSCULAR HEMOGLOBIN 28 pg (27-31); MEAN CORPUSCULAR HGB CONC 33 g/dL (33-37); MEAN CORPUSCULAR VOLUME 85.3 fL (80-94); MONOCYTES # (AUTO) 0.8 K/uL (0.8-1.0); MONOCYTES % (AUTO) 6.8 % (1.7-9.3); NEUTROPHILS # (AUTO) 6.3 K/uL (1.8-7.7); NEUTROPHILS % (AUTO) 53.2 % (42.2-75.2); PLATELET COUNT (AUTO) 343 K/uL (140-450); RED BLOOD CELL COUNT(AUTO) 4.24 MIL/uL (4.20-5.40); RED CELL DISTRIBUTION WIDTH 13.5 % (11.6-13.7); WHITE BLOOD COUNT (AUTO) 11.8 K/uL (4.8-10.8)
[2023-04-21 18:55] LABS: ANION GAP 12.8 (8-16); CALCIUM 8.5 mg/dL (8.5-10.1); CREATININE 0.9 mg/dL (0.6-1.3); POTASSIUM 3.8 mmol/L (3.5-5.1); TOTAL BILIRUBIN 0.4 mg/dL (0.0-1.0); TOTAL PROTEIN, SERUM 7.8 g/dL (6.4-8.2)
[2023-04-21 19:45] LABS: BILIRUBIN,URINE NEGATIVE (NEGATIVE); BLOOD, URINE NEGATIVE (NEGATIVE); LEUKOCYTE ESTERASE ,URINE 1+ (NEGATIVE); NITRITE, URINE NEGATIVE (NEGATIVE); PROTEIN,URINE NEGATIVE (NEGATIVE); UGLUCOSE NEGATIVE (NEGATIVE); UROBILINOGEN,URINE 0.2 EU/dL (0.2 - 1)
[2023-04-21 19:47] LABS: APPEARANCE,URINE HAZY (CLEAR); COLOR,URINE STRAW (YELLOW)
[2023-04-21 19:55] LABS: BACTERIA,URINE None Seen /HPF (None Seen); RBC,URINE 0-5 /HPF (0-5); SQUAMOUS EPITHELIAL CELL,UR 4-10 (MOD) /LPF (0-3 (FEW))
[2023-04-21 19:56] LABS: MUCUS,URINE 1+ /LPF (None Seen); TRICHOMONAS,URINE None Seen /HPF (None Seen); YEAST,URINE None Seen /HPF (None Seen)
== END 2023-04-21 19:15 | disposition left against medical advice (07) ==
LOC: MED 16:56
DX: N39.0 Urinary tract infection, site not specified (principal); Z79.899 Other long term (current) drug therapy; Z79.1 Long term (current) use of non-steroidal anti-inflammatories (NSAID); Z79.2 Long term (current) use of antibiotics
CPT/HCPCS: 36415; 80053; 81001; 83690; 85025; 87086; 99283